=== PATIENT | male | born 2000 | race African-American/Black ===

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

== ENCOUNTER 2025-02-03 11:31 | Emergency (ER) | payer BC, OTHER ==
[~2025-02-03] VITALS: Ht 177.8 cm; Wt 70.0 kg
[2025-02-03 11:33] VITALS: O2SAT 99
[2025-02-03 12:31] LABS: BASOPHILS % 0.6 % (0.0-2.0); DIFFERENTIAL COMMENT 0; EOSINOPHILS % 3.6 % (0.0-5.0); HEMATOCRIT. 39.7 % (42.0-52.0); HEMOGLOBIN. 13.5 g/dL (14.0-18.0); MEAN CORPUSCULAR HEMOGLOBIN 32.3 pg (28.0-32.0); MEAN CORPUSCULAR HGB CONC 33.9 g/dL (31.0-37.0); MEAN CORPUSCULAR VOLUME 95.3 fL (80.0-94.0); MEAN PLATELET VOLUME 9.6 fl (7.4-10.4); MONOCYTES % 13.6 % (2.0-8.0); NEUTROPHILS % 60.2 % (40.0-76.0); PLATELET 262 x1000/uL (130-400); RED BLOOD CELL COUNT 4.17 mill/uL (4.7-6.1); RED CELL DISTRIBUTION WIDTH 12.4 % (11.6-14.6); WHITE BLOOD COUNT 6.6 x1000/uL (4.5-11.0)
[2025-02-03 12:35] LABS: CHLORIDE 102 mEq/L (98-107); POTASSIUM 3.7 mEq/L (3.5-5.1); SODIUM 141 mEq/L (136-145)
[2025-02-03 12:36] LABS: CALCIUM 9.4 mg/dL (8.7-10.4); CARBON DIOXIDE 32 mEq/L (21-32)
[2025-02-03 12:41] LABS: CREATININE 1.1 mg/dL (0.6-1.3); GLUCOSE 94 mg/dL (70-105); UREA NITROGEN BLOOD 13 mg/dL (9-23)
[2025-02-03 12:47] LABS: TROPONIN I HIGH SENSITIVITY < 4 ng/L (3.0-53)
[2025-02-03] MEDS ORDERED: IBUP-2029 MT (13:06)
[2025-02-03 13:44] VITALS: BP 124/78; PULSE 70; RESP 16; O2SAT 95
[2025-02-03] MEDS: KETOROLAC 30MG/ML VIAL IV ONE (13:44)
== END 2025-02-03 13:49 | disposition home or self-care (01) ==
LOC: ER 11:31
DX: R07.89 Other chest pain (principal); F12.90 Cannabis use, unspecified, uncomplicated
CPT/HCPCS: 80048; 85025; 84484; 36415; 71045; 99284; Z7610 ×2

== ENCOUNTER 2025-02-24 20:01 | Emergency (ER) | payer SELFPAY ==
[~2025-02-24] VITALS: Ht 177.8 cm; Wt 75.0 kg
[~2025-02-24 20:01] MED LIST: IBUP-2029 MT
[2025-02-24 20:13] VITALS: O2SAT 100
[2025-02-24 20:19] VITALS: BP 132/77; PULSE 66; RESP 18; TEMP 36.6; O2SAT 99
[2025-02-24 21:18] VITALS: TEMP 97.9
[2025-02-24] MEDS: ACETAMINOPHEN 500MG TABLET PO ONE (21:18)
[2025-02-24] MEDS ORDERED: IBUP-2029 MT (21:31)
== END 2025-02-24 21:37 | disposition home or self-care (01) ==
LOC: ER 20:01
DX: S09.8XXA Other specified injuries of head, initial encounter (principal); F12.90 Cannabis use, unspecified, uncomplicated; W18.39XA Other fall on same level, initial encounter; Y93.89 Activity, other specified; Y92.89 Other specified places as the place of occurrence of the external cause; Y99.8 Other external cause status
CPT/HCPCS: 99282